=== PATIENT | female | born 1980 | race Caucasian/White ===

== ENCOUNTER 2020-07-02 09:28 | Emergency (ER) | payer SELFPAY ==
[2020-07-02] MEDS ORDERED: Mag-Al 1200 mg/1200 mg/30 ML UDCUP ONE (09:49)
[2020-07-02] MEDS ORDERED: Lidocaine Viscous Sol 2% 15 ml UD Cup ONE (09:49)
--- NOTE | 2020-07-02 10:12 | RAD ---
XR Chest 1 View Portable History: Chest pain Comparison: Radiograph 2013 Findings: Lungs are mildly hypoinflated. Old left rib fractures. No confluent airspace consolidation, pneumothorax or effusion. Impression: No acute intrathoracic abnormality.
[2020-07-02 10:21] LABS: BHCG - Serum Negative (NEGATIVE); Hemoglobin 11.3 g/dL (12.0-16.0); Mean Corpuscular HGB CONC 31.8 g/dL (32.0-36.0); Mean Corpuscular Hemoglobin 24.6 pg (27.0-31.0); Mean Corpuscular Volume 77.4 fL (78.0-98.0); Pregs Control Background? CLEAR/WHITE (CLR/WHITE); Pregs Control Bar Appear? YES (CONTROL BAR); RBC Distribution Width 15.2 % (11.5-14.5); White Blood Cell (WBC) Count 6.3 thou/uL (4.8-10.8)
[2020-07-02 10:38] LABS: #Basophils 0.1 thou/uL (0.0-0.2); #Eosinphils 0.1 thou/uL (0.0-0.7); #Lymphocytes 2.1 thou/uL (1.20-3.40); #Monocytes 0.4 thou/uL (0.11-0.59); #Neutrophils 3.6 thou/uL (1.40-6.50); %Basophils 0.8 % (0.0-1.0); %Eosinophils 1.2 % (0.0-10.0); %Lymphocytes 33.5 % (21.0-51.0); %Monocytes 6.3 % (0.0-10.0); %Neutrophils 58.1 % (42.0-75.0); Hypochromia SLIGHT = 6-15 cells (100X) (0-5/hpf); MDiff Complete? YES; Platelet Morphology Comment PLT clumps seen-LOW
[2020-07-02 10:39] LABS: ALT (SGPT) 14 U/L (8-55); AST (SGOT) 29 U/L (5-34); Albumin 3.7 g/dL (3.5-5.0); Alkaline Phosphatase 90 U/L (40-110); Anion Gap 14 mmol/L (10-20); BUN (Urea Nitrogen) 11 mg/dL (7.0-18.7); Bilirubin, Total 0.3 mg/dL (0.2-1.2); Calc. Creatinine Clearance 0 mL/min (70-130); Calcium 8.5 mg/dL (7.8-10.44); Carbon Dioxide 23 mmol/L (22-29); Chloride 106 mmol/L (98-107); Estimated GFR-MDRD 89; Globulin 3.5 g/dL (2.4-3.5); Glucose 84 mg/dL (70-105); Lipase 12 U/L (8-78); Potassium 4.9 mmol/L (3.5-5.1); Protein, Total 7.2 g/dL (6.0-8.3); Sodium 138 mmol/L (136-145)
--- NOTE | 2020-07-02 12:32 | CT ---
CTA Angio Chest W WO Con History: Chest pain Comparison: Chest radiograph same day Findings: CT angiogram chest performed after the intravenous ministration of contrast. 3-D rendering provided. No proximal segmental pulmonary arterial filling defect. Left upper lobe calcified granuloma and left perihilar calcified lymph node. No pericardial effusion. Nodular appearance left thyroid lobe. Cholelithiasis without cholecystitis. No confluent airspace consolidation, pneumothorax or effusion. Impression: 1. No pulmonary embolism. 2. No acute inflammatory process within the chest. 3. Prior granulomatous disease. 4. Slight nodular appearance left thyroid lobe for which nonemergent ultrasound recommended.
[2020-07-02 13:37] LABS: Troponin I Less than 0.010 ng/mL (< 0.028)
[2020-07-02] MEDS ORDERED: Iopamidol-370 76% 500 ML 1 ML ONE (13:47)
[2020-07-02] MEDS ORDERED: Ketorolac Tromethamine 30 MG/ML VIAL ONE (14:10)
== END 2020-07-02 14:22 | disposition home or self-care (01) ==
LOC: ERS 09:28
DX: R07.9 Chest pain, unspecified (principal); E04.1 Nontoxic single thyroid nodule; G43.909 Migraine, unspecified, not intractable, without status migrainosus
CPT/HCPCS: 36415; 71045; 71275; 80053; 83690; 84484; 84703; 85025; 85379; 93005; 96374; J1885; Q9967

== ENCOUNTER 2022-02-06 10:11 | Emergency (ER) | payer OTHER, SELFPAY ==
[2022-02-06] MEDS ORDERED: Cyclobenzaprine 10 MG TAB ONE (12:30)
[2022-02-06] MEDS ORDERED: Ketorolac Tromethamine 30 MG/ML VIAL ONE (12:30)
== END 2022-02-06 13:39 | disposition home or self-care (01) ==
LOC: ERS 10:11
DX: S13.4XXA Sprain of ligaments of cervical spine, initial encounter (principal); S16.1XXA Strain of muscle, fascia and tendon at neck level, initial encounter; S39.012A Strain of muscle, fascia and tendon of lower back, initial encounter; V49.50XA Passenger injured in collision with unspecified motor vehicles in traffic accident, initial encounter
CPT/HCPCS: 72100; 72125; 96372; J1885

== ENCOUNTER 2023-09-23 18:21 | Emergency (ER) | payer BC, SELFPAY ==
[2023-09-23 20:30] LABS: SARS-CoV-2 NAA Rapid Test Not Detected (NotDetected)
== END 2023-09-23 20:53 | disposition home or self-care (01) ==
LOC: ERS 18:21
DX: J10.1 Influenza due to other identified influenza virus with other respiratory manifestations (principal)
CPT/HCPCS: 71045